=== PATIENT | female | born 1960 | race Caucasian/White ===

== ENCOUNTER 2019-08-23 09:26 | Day surgery (SDC) | payer OTHER ==
[2019-08-22 10:35] VITALS: BMI 23.8
[2019-08-23] MEDS ORDERED: PROPOFOL 200 MG/20 ML VIAL ONE (10:01)
[2019-08-23] MEDS ORDERED: Lidocaine 1% PF 5 ML VIAL ONE (10:01)
--- NOTE | 2019-08-26 10:12 | OP ---
DATE OF PROCEDURE: 08/23/2019 PROCEDURES PERFORMED: Flexible sigmoidoscopy with biopsy. PREOPERATIVE DIAGNOSIS: A 59-year-old female undergoing colonoscopy for colon cancer. She does have a history of mild hematochezia recently, some blood-stained mucus per rectum. POSTOPERATIVE DIAGNOSES: 1. Mild proctitis, mostly in the rectum and rectosigmoid area. 2. Exam done to about 25 to 30 cm. The patient had large amount of solid stool at 25 cm margin. The procedure could not be completed. DESCRIPTION OF PROCEDURE: The patient was placed on the left lateral position and sedation by Anesthesia Department. Pentax video colonoscope was introduced per rectum, advanced to a distance of about 25 to 30 cm from the anal margin. The patient had a solid stool in the lumen. I tried to wash out and tried to get to pass the area. However, once I proceeded, she had a lot of stools in the anus. I could not irrigate and entirely clean out the area. The procedure was terminated. The patient appears to have what appears to be loss of mucosal vascular pattern and also granular appearing mucosa. most of the rectum on . Biopsies . DISCHARGE PLANNING: This is a 59-year-old female came for a colonoscopy for colon cancer screening. The colonoscopy showed a large amount of stool in sigmoid colon area. I could not advance the scope beyond the area. She did have what appears to be mild colitis. This was biopsied. RECOMMENDATIONS: The patient advised to come back early next week for repeat colonoscopy. Job ID: [id number]
== END 2019-08-23 12:50 | disposition home or self-care (01) ==
LOC: SDC 09:26
PROVIDERS: ATTEND Internal Medicine Gastroenterology
PROC: 0DBN8ZX Excision of Sigmoid Colon, Via Natural or Artificial Opening Endoscopic, Diagnostic (ICD-10-PCS; principal; 2019-08-23)
DX: Z12.11 Encounter for screening for malignant neoplasm of colon (principal); K62.89 Other specified diseases of anus and rectum; Z79.899 Other long term (current) drug therapy
CPT/HCPCS: 88305; J2001; J2704